=== PATIENT | male | born 1990 | race Caucasian/White ===

== ENCOUNTER 2021-01-08 19:06 | Emergency (ER) | payer OTHER, SELFPAY ==
--- NOTE | ~2021-01-08 | XR_ITS ---
EXAMINATION: XR FOOT, LEFT CLINICAL INFORMATION: Pain, swelling arch to COMPARISON: None TECHNIQUE: AP, lateral, and oblique views of the left foot. FINDINGS: No displaced fracture. Alignment is normal. Some mild soft tissue swelling at the first metatarsophalangeal joint. No bony erosions. XR/XR foot LT min 3V IMPRESSION: No fracture or dislocation. Mild soft tissue swelling at the first metatarsal phalangeal joint.
[2021-01-08 19:32] VITALS: BP 135/86; PULSE 93; RESP 17; O2SAT 97; BMI 30.5
--- NOTE | 2021-01-08 20:23 | ED_ITS ---
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 Presented today after working all weekend having pain to the for S metatarsal phalangeal area of his left foot. Patient denies any specific trauma. No fever no chills. No history of similar symptoms in the past. He did eat a lot of meat over the weekend. Patient denies any dizziness. Denies any wine. No coughing or congestion or upper respiratory symptoms. No diaphoresis. Related Data Allergies Allergy/AdvReac Type Severity Reaction Status Date / Time No Known Allergies Allergy Verified 01/08/21 19:31 Review of Systems Review of Systems: No fever no chills no chest pain or shortness of breath Yes all other systems are reviewed and are negative [facility] Past Medical History Attestation statement: The following information was validated with the patient. Medical History (Updated 01/08/21 @ 20:27 by Love Kuamr MD) No pertinent past medical history Social History Social History Advance Directives: No Advance Directives Information Provided: Yes Physical Exam Vital Signs: Vital Signs: Last Vital Signs Pulse 93 01/08/21 19:32 Resp 17 01/08/21 19:32 BP 135/86 01/08/21 19:32 Pulse Ox 97 01/08/21 19:32 Body Mass Index 30.5 Appearance: Alert. Oriented X3. No acute distress. Eyes: Pupils equal, round and reactive to light. ENT: Pharynx normal. Neck: Normal inspection. Neck supple. No lymph nodes noted. No crepitus CVS: Normal heart rate and rhythm. Pulses normal. Normal S1 and S2 Respiratory: No respiratory distress. Breath sounds normal. No Wheezing. No rales Abdomen: Soft and nontender. No rigidity. No distention. good BS x4 Skin: Skin warm and dry. Normal skin color. Normal skin turgor. There is swelling to the base of the 1st metatarsal pharyngeal area on the left foot. Redness, swelling. Distally capillary refill less than 2 seconds sensation intact. Extremities: Neurovascular intact to all extremities. No Lacerations. Neuro: Oriented X 3. No motor deficit. No sensory deficit. Moving all extermities. No slurred speech Medical Decision Making MDM Narrative Medical decision making narrative: Patient's signs and symptoms suggestive of gout. Will start patient on NSAID ice elevate. Follow-up on an outpatient basis. Diet modification. Currently in stable condition with discharge home. Discharge Plan Discharge Clinical Impression: Gout Patient Disposition: Home, Self-Care Instructions: Gout (ED) Referrals: Beata Ni MD [Primary Care Provider] - 2 days Stand Alone Forms: Work/School Release
== END 2021-01-08 20:46 | disposition home or self-care (01) ==
PROVIDERS: Emergency Provider Emergency Medicine Emergency Medical Services; PCP Internal Medicine
DX: M10.9 Gout, unspecified (principal); M79.672 Pain in left foot
CPT/HCPCS: 73630; 99283